=== PATIENT | female | born 1935 | race Caucasian/White ===

== ENCOUNTER 2020-05-09 23:53 | Emergency (ER) | payer MEDICARE ==
[~2020-05-09] VITALS: Ht 154.9 cm; Wt 53.5 kg
[2020-05-09 23:58] VITALS: BP 167/91
[2020-05-10] MEDS ORDERED: NEOSPORIN OINT. PKT 1 PACKET ONE (00:28)
[2020-05-10] MEDS ORDERED: DIPH,PERTUSS(ACELL),TET VAC/PF 0.5 ML IM-VACC ONE ×2 (00:29→00:30)
== END 2020-05-10 00:54 | disposition home or self-care (01) ==
LOC: ED 05-10 00:47
DX: S91.104A Unspecified open wound of right lesser toe(s) without damage to nail, initial encounter (principal); M79.672 Pain in left foot; X58.XXXA Exposure to other specified factors, initial encounter; Y93.89 Activity, other specified; Y92.098 Other place in other non-institutional residence as the place of occurrence of the external cause; Y99.8 Other external cause status
CPT/HCPCS: 90471; 90715; 99283